=== PATIENT | male | born 1970 ===

== ENCOUNTER 2018-06-04 08:54 | Day surgery (SDC) | payer BC ==
[~2018-06-04] VITALS: Ht 182.9 cm; Wt 68.0 kg
[2018-06-04] VITALS (8 sets, daily range): BP systolic 108–127; BP diastolic 66–88
--- NOTE | 2018-06-04 06:38 | Anethesia Preoperative Eval ---
Anesthesia Pre-op PMH/ROS General Date of Evaluation: Jun 04, 2018 Time of Evaluation: 06:37 Anesthesiologist: monet ASA Score: ASA 3 Mallampati Score Class I : Soft palate, uvula, fauces, pillars visible Class II: Soft palate, uvula, fauces visible Class III: Soft palate, base of uvula visible Class IV: Only hard plate visible Mallampati Classification: Class II Surgeon: abdifatah Diagnosis: abdominal pain Surgical Procedure: egd/colonoscopy Anesthesia History: none Social History: smoking - former smoker Family History: no anesthesia problems Allergies: Coded Allergies: No Known Allergies (Unverified , 06/01/18) Medications: see eMAR Patient NPO?: Yes Past Medical History Neurologic/Psychiatric: Reports: other - multiple sclerosis HEENT: Reports: other - tinnitus Anesthesia Pre-op Phys. Exam Physician Exam Last Vital Signs Date Time Temp Pulse Resp B/P (MAP) Pulse Ox O2 Delivery O2 Flow Rate FiO2 06/04/18 09:29 Room Air 06/04/18 09:27 98.4 77 18 127/88 99 Constitutional: NAD Neurologic: CN 2-12 intact Cardiovascular: RRR Respiratory: CTA Gastrointestinal: S/NT/ND Airway Exam Mallampati Score: Class II MO: full Neck: flexible TMD: 2fb ROM: full Teeth: intact Anesthesia Pre-op A/P Risk Assessment & Plan Assessment: asa3 Plan: mac Status Change Before Surgery: No Pre-Antibiotics Drug: Sunita Combs MD Jun 04, 2018 06:38
[~2018-06-04 08:54] MED LIST: Atropine Inj 1mg/10ml Syr IV PRN; DiphenhydrAMINE 50mg/ml Inj IVP PRN; Midazolam 2mg/2ml Inj IVP PRN; fentaNYL 100 mcg/2 mL IV PRN
[2018-06-04] MEDS ORDERED: NKM (09:34)
--- NOTE | 2018-06-04 09:42 | Pre-Procedure Note/Attestation ---
Pre-Procedure Note/Attestation Complete Prior to Procedure Planned Procedure: not applicable Procedure Narrative: esophagogastroduodenoscopy and colonoscopy Indications for Procedure Pre-Operative Diagnosis: wt loss, abd pain Attestation I attest that I discussed the nature of the procedure; its benefits; risks and complications; and alternatives (and the risks and benefits of such alternatives ), prior to the procedure, with the patient (or the patient's legal financial service representative). I attest that, if there was a reasonable possibility of needing a blood transfusion, the patient (or the patient's legal financial service representative) was given the [facility] standardized written summary, pursuant to the Andrew Drew Blood Safety Act ([place] Health and Safety Code # 1645, as amended). I attest that I re-evaluated the patient just prior to the surgery and that there has been no change in the patient's H&P, except as documented below: Ramos Sellers MD Jun 04, 2018 09:42
--- NOTE | 2018-06-04 09:43 | Short Stay Surgery H&P ---
History of Present Illness History of Present Illness Chief Complaint wt loss, abd pain HPI Gamaliel Camp is a 47 year old male who was admitted on for Abdominal Pain Patient History Allergies: Coded Allergies: No Known Allergies (Unverified , 06/01/18) Medication History Scheduled No Known Medications* (NKM - No Known Medications*), 0 ., (Reported) Review of Systems Cardiovascular: Reports: no symptoms Respiratory: Reports: no symptoms Skeletal: Reports: no symptoms Gastrointestinal: Reports: no symptoms Genitourinary: Reports: no symptoms Neurologic: Reports: no symptoms Endocrine: Reports: no symptoms Hematologic: Reports: no symptoms Physical Exam Vital Signs Last Vital Signs Date Time Temp Pulse Resp B/P (MAP) Pulse Ox O2 Delivery O2 Flow Rate FiO2 06/04/18 09:29 Room Air 06/04/18 09:27 98.4 77 18 127/88 99 Skin: normal HENT: normal Heart: normal Lungs: normal Abdomen: normal Extremities: normal Plan Plan of Care EGD and colonoscopy Attestation Are the patient's medical conditions optimized for surgery? Attestation Response: yes Ramos Sellers MD Jun 04, 2018 09:43
[2018-06-04] MEDS ORDERED: Lidocaine 1% MPF 10mg/ml 5ml ONE (10:00)
[2018-06-04] MEDS ORDERED: Propofol 200mg/20ml IV ONE ×2 (10:00)
--- NOTE | 2018-06-04 10:24 | Endoscopy Procedure Note ---
Endoscopy Procedure Note General Indication for Procedure: abd pain, WT loss Procedures Performed: EGD, colonoscopy Operative Findings/Diagnosis: colon polyp, large hemrrhoids Specimen: yes Pt Tolerated Procedure Well: Yes Estimated Blood Loss: none Anesthesia Anesthesiologist: monet Anesthesia: MAC Inserted Devices Implant(s) used?: No Quality Quality of Bowel Preparation: Fair Did scope reach the cecum?: Yes Was there any complications?: No GI Core Measures 50 yrs or older w/o bx or poly: No 10yrs. F/U not recommended: Yes If not recommended, why?: Above average risk 10 yrs. F/U needed: Yes 18 years or older w/prev. colo: No Ramos Sellers MD Jun 04, 2018 10:23
[2018-06-04 10:53] LABS: BASOPHILS % (AUTO) 0.8 % (0.0-2.0); EOSINOPHILS % (AUTO) 0.6 % (0.0-3.0); HEMOGLOBIN 14.7 G/DL (14.2-18.0); LYMPHOCYTES % (AUTO) 13.4 % (20.0-45.0); MEAN CORPUSCULAR VOLUME 84 FL (80-99); MONOCYTES % (AUTO) 9.7 % (1.0-10.0); NEUTROPHILS % (AUTO) 75.5 % (45.0-75.0); PLATELET COUNT 211 K/UL (150-450); RED BLOOD COUNT 4.76 M/UL (4.70-6.10); RED CELL DISTRIBUTION WIDTH 10.5 % (11.6-14.8); WHITE BLOOD COUNT 6.9 K/UL (4.8-10.8)
--- NOTE | 2018-06-04 10:58 | Immediate Post-Op Evaluation ---
Immediate Post-Op Evalulation Immediate Post-Op Evalulation Procedure: egd/colonoscopy/bx Date of Evaluation: Jun 04, 2018 Time of Evaluation: 10:43 IV Fluids: 325ml 0.9ns Blood Products: none Estimated Blood Loss: negligible Blood Pressure Systolic: 115 Blood Pressure Diastolic: 73 Pulse Rate: 85 Respiratory Rate: 18 O2 Sat by Pulse Oximetry: 100 Temperature (Fahrenheit): 98.8 Pain Score (1-10): 0 Nausea: No Vomiting: No Complications none Patient Status: awake, reacts, patent Hydration Status: adequate Drug: Sunita Combs MD Jun 04, 2018 10:58
--- NOTE | 2018-06-04 11:00 | 48 Hour Post Anesthesia Eval ---
Post Anesthesia Evaluation Procedure: egd/colonoscopy/bx Date of Evaluation: Jun 04, 2018 Time of Evaluation: 10:45 Blood Pressure Systolic: 113 0: 66 Pulse Rate: 71 Respiratory Rate: 18 Temperature (Fahrenheit): 98.8 O2 Sat by Pulse Oximetry: 100 Airway: patent Nausea: No Vomiting: No Pain Intensity: 0 Hydration Status: adequate Cardiopulmonary Status: stable Mental Status/LOC: patient returned to baseline Post-Anesthesia Complications: none Follow-up care needed: N/A Sunita Chaudhari MD Jun 04, 2018 11:00
[2018-06-04 11:07] LABS: ALANINE AMINOTRANSFERASE 23 U/L (12-78); ALBUMIN 3.3 G/DL (3.4-5.0); ALKALINE PHOSPHATASE 52 U/L (46-116); AMYLASE 66 U/L (25-115); ANION GAP 5 mmol/L (5-15); ASPARTATE AMINO TRANSFERASE 11 U/L (15-37); BILIRUBIN,TOTAL 1.3 MG/DL (0.2-1.0); BLOOD UREA NITROGEN 17 mg/dL (7-18); CALCIUM 8.7 MG/DL (8.5-10.1); CARBON DIOXIDE 32 MMOL/L (21-32); CHLORIDE 105 MMOL/L (98-107); CREATININE 1.1 MG/DL (0.55-1.30); POTASSIUM 3.7 MMOL/L (3.5-5.1); SODIUM 142 MMOL/L (136-145)
[2018-06-04 11:12] LABS: BILIRUBIN,DIRECT 0.2 MG/DL (0.0-0.3)
--- NOTE | 2018-06-04 15:30 | Procedure Note ---
DATE OF PROCEDURE: 06/04/2018 SURGEON: Ramos Sellers M.D. PROCEDURE: Upper endoscopy with biopsy and colonoscopy with biopsy. ANESTHESIA: Per Dr. Ness. INSTRUMENT: Olympus adult flexible upper endoscope and colonoscope. INDICATION: 1. Abdominal pain. 2. Weight loss. The procedure, risks, benefits, and possible consequences, including hemorrhage, aspiration, perforation and infection, and alternative treatments, were explained to the patient/legal guardian by Dr. Ramos Sellers and the patient/legal guardian understood and accepted these risks. DESCRIPTION OF PROCEDURE: After informed consent was obtained and the patient was adequately sedated, Olympus upper endoscope was advanced from the mouth into the second portion of duodenum and retroflexion was performed in the stomach. The patient had evidence of diffuse gastritis. Random biopsy from antrum and body was obtained to rule out H. pylori infection. The patient also had evidence of hiatal hernia small to medium size. No evidence of any obvious esophagitis or esophageal mass. At this time, the upper endoscope was retrieved and the patient was turned over colonoscopy. First rectal exam was performed which was positive for large internal and external hemorrhoids. Then, the scope was advanced from rectum into the cecum and then subsequently to the terminal ileum. Quality of prep overall was fair, actually the scope was clogged up at least once to twice requiring a lot of flushing and using a brush to clean the scope to be able to continue so I would say quality prep was fair, about 20% of the colonic mucosa was not fully examined given this prep. The patient had evidence of 4 mm polyp in the cecum, removed with the cold biopsy forceps technique. The rest of the examination grossly within normal limits. In the rectum, there was evidence of scar possibly from prior rectal surgeries. There was multiple large internal hemorrhoids. The patient tolerated the procedure very well without any complication. SUMMARY OF FINDINGS: 1. Gastritis, status post biopsy. 2. Hiatal hernia. 3. One colonic polyp removed, see above for details. 4. Fair colonoscopy prep. 5. Large internal hemorrhoids. 6. Possible prior history of rectal surgery. RECOMMENDATIONS: 1. Follow up biopsy results and treat accordingly. 2. Repeat colonoscopy at least in 5 years. 3. The patient to be treated for external hemorrhoids and consider referral to surgery if needed. Ramos Flaquita Sellers DR: [place] JOB#: [id number] CC:
== END 2018-06-04 11:40 | disposition home or self-care (01) ==
LOC: GAS 08:54
DX: K29.50 Unspecified chronic gastritis without bleeding (principal); K44.9 Diaphragmatic hernia without obstruction or gangrene; K64.8 Other hemorrhoids; K64.4 Residual hemorrhoidal skin tags; D12.0 Benign neoplasm of cecum; G35 Multiple sclerosis; H93.19 Tinnitus, unspecified ear
CPT/HCPCS: 36415; 43239; 45380; 80053; 82150; 82248; 82784; 83516; 83520; 83690; 85025; 86255; J2704; 94003; 94150